=== PATIENT | female | born 1970 | race Caucasian/White ===

== ENCOUNTER → 2019-11-30 12:32 | Outpatient (BNVA) | payer SELFPAY | PROVIDERS: PCP Family Medicine; Visit Provider Family Medicine | DX: I10 Essential (primary) hypertension (principal); R74.8 Abnormal levels of other serum enzymes; F31.32 Bipolar disorder, current episode depressed, moderate; E03.9 Hypothyroidism, unspecified; M79.7 Fibromyalgia; F31.30 Bipolar disorder, current episode depressed, mild or moderate severity, unspecified; M79.89 Other specified soft tissue disorders; K21.9 Gastro-esophageal reflux disease without esophagitis; N32.89 Other specified disorders of bladder | CPT/HCPCS: 80048; 80178; 84443 ==

== ENCOUNTER → 2020-02-08 17:58 | Outpatient (BNVA) | payer SELFPAY | PROVIDERS: PCP Family Medicine; Visit Provider Family Medicine | DX: N18.3 Chronic kidney disease, stage 3 (moderate) (principal); E03.9 Hypothyroidism, unspecified; F31.32 Bipolar disorder, current episode depressed, moderate; I10 Essential (primary) hypertension; M79.7 Fibromyalgia; M79.89 Other specified soft tissue disorders; K21.9 Gastro-esophageal reflux disease without esophagitis; N32.89 Other specified disorders of bladder | CPT/HCPCS: 80053; 80061; 80178; 84439; 84443; 84481; 85025 ==

== ENCOUNTER → 2020-06-07 18:00 | Outpatient (BNVA) | payer SELFPAY | PROVIDERS: PCP Family Medicine; Referring Provider Family Medicine; Visit Provider Family Medicine | DX: I10 Essential (primary) hypertension (principal); E03.9 Hypothyroidism, unspecified; F31.32 Bipolar disorder, current episode depressed, moderate; Z79.899 Other long term (current) drug therapy | CPT/HCPCS: 80048; 80178; 84439; 84443; 84481 ==

== ENCOUNTER → 2020-06-16 16:49 | Outpatient (BNVA) | payer SELFPAY | PROVIDERS: PCP Family Medicine; Visit Provider Nurse Practitioner Family | DX: N18.30 Chronic kidney disease, stage 3 unspecified (principal) | CPT/HCPCS: 80069; 81003; 82570; 84156 ==

== ENCOUNTER → 2020-09-14 14:39 | Outpatient (BNVA) | payer SELFPAY | PROVIDERS: PCP Family Medicine; Visit Provider Family Medicine | DX: N18.30 Chronic kidney disease, stage 3 unspecified (principal); E03.9 Hypothyroidism, unspecified; M79.89 Other specified soft tissue disorders; M79.7 Fibromyalgia; K21.9 Gastro-esophageal reflux disease without esophagitis; I83.90 Asymptomatic varicose veins of unspecified lower extremity; I12.9 Hypertensive chronic kidney disease with stage 1 through stage 4 chronic kidney disease, or unspecified chronic kidney disease | CPT/HCPCS: 80048; 84443 ==

== ENCOUNTER → 2020-10-31 17:20 | Outpatient (BNVA) | payer OTHER, SELFPAY | PROVIDERS: PCP Family Medicine; Visit Provider Nurse Practitioner Family | DX: Z20.822 Contact with and (suspected) exposure to COVID-19 (principal) | CPT/HCPCS: 87635 ==

== ENCOUNTER → 2020-11-14 15:48 | Outpatient (BNVA) | payer SELFPAY | PROVIDERS: PCP Family Medicine; Visit Provider Family Medicine | DX: J41.0 Simple chronic bronchitis (principal); M79.7 Fibromyalgia; B37.0 Candidal stomatitis; M79.89 Other specified soft tissue disorders; I10 Essential (primary) hypertension; K21.9 Gastro-esophageal reflux disease without esophagitis; E03.9 Hypothyroidism, unspecified; F17.200 Nicotine dependence, unspecified, uncomplicated; F31.76 Bipolar disorder, in full remission, most recent episode depressed; N18.30 Chronic kidney disease, stage 3 unspecified | CPT/HCPCS: 84443 ==

== ENCOUNTER → 2021-02-27 11:00 | Outpatient (BNVA) | payer SELFPAY | PROVIDERS: PCP Family Medicine; Visit Provider Family Medicine | DX: J41.0 Simple chronic bronchitis (principal); M79.89 Other specified soft tissue disorders; M79.7 Fibromyalgia; E03.9 Hypothyroidism, unspecified; K21.9 Gastro-esophageal reflux disease without esophagitis; N18.30 Chronic kidney disease, stage 3 unspecified; I12.9 Hypertensive chronic kidney disease with stage 1 through stage 4 chronic kidney disease, or unspecified chronic kidney disease | CPT/HCPCS: 80048; 84439; 84443; 84481 ==

== ENCOUNTER → 2021-05-11 09:31 | Outpatient (BNVA) | payer SELFPAY | PROVIDERS: PCP Family Medicine; Referring Provider Nurse Practitioner Psychiatric/Mental Health; Visit Provider Nurse Practitioner Psychiatric/Mental Health | DX: Z79.899 Other long term (current) drug therapy (principal) | CPT/HCPCS: 36415; 80061; 80178; 83036 ==

== ENCOUNTER → 2021-07-27 07:35 | Outpatient (BNVA) | payer MEDICAID, SELFPAY | PROVIDERS: PCP Family Medicine; Visit Provider Nurse Practitioner Psychiatric/Mental Health | DX: F31.76 Bipolar disorder, in full remission, most recent episode depressed (principal); Z79.899 Other long term (current) drug therapy; Z51.81 Encounter for therapeutic drug level monitoring; G89.29 Other chronic pain; M79.7 Fibromyalgia | CPT/HCPCS: 99214 ==

== ENCOUNTER → 2021-08-30 17:15 | Outpatient (BNVA) | payer MEDICAID, SELFPAY | PROVIDERS: PCP Family Medicine; Visit Provider Psychiatry & Neurology Neurology | DX: J41.0 Simple chronic bronchitis (principal) | CPT/HCPCS: 87635 ==

== ENCOUNTER 2021-09-05 12:59 | Outpatient (CLI) | payer MEDICAID, SELFPAY ==
--- NOTE | 2021-09-05 13:39 | PFTS_ITS ---
Date of Study:09/05/21 Date of Dictation: MECHANICS: Forced vital capacity (FVC) is reduced. Forced expiratory volume in one second (FEV1) is reduced. FEV1/FVC is normal. FLOW VOLUME LOOP: Reduced flow at all lung volumes with scooping. LUNG VOLUMES: Total lung capacity (TLC) is normal. Residual volume (RV) is increased. DIFFUSING CAPACITY FOR CARBON MONOXIDE: Moderately reduced. INTERPRETATION: The postbronchodilator spirometry is consistent with moderate restriction. There is a significant postbronchodilator response. Lung volumes are suggestive of air trapping. Gas exchange (DLCO) is moderately reduced. MTDD
== END 2021-09-05 13:00 | disposition home or self-care (01) ==
LOC: RT 13:00
PROVIDERS: PCP Family Medicine; Visit Provider Family Medicine
DX: J41.0 Simple chronic bronchitis (principal)
CPT/HCPCS: 94060; 94726; 94729

== ENCOUNTER 2021-09-19 12:00 | Outpatient (CLI) | payer MEDICAID, SELFPAY | END 2021-09-19 12:01 | disposition home or self-care (01) | LOC: SLEEP 09-20 09:43 | PROVIDERS: PCP Family Medicine; Visit Provider Internal Medicine Critical Care Medicine | DX: G47.10 Hypersomnia, unspecified (principal) | CPT/HCPCS: G0399 ==

== ENCOUNTER → 2021-09-22 10:43 | Outpatient (BNVA) | payer MEDICAID, SELFPAY | PROVIDERS: PCP Family Medicine; Visit Provider Emergency Medicine | DX: S39.012A Strain of muscle, fascia and tendon of lower back, initial encounter (principal); X50.3XXA Overexertion from repetitive movements, initial encounter; M54.9 Dorsalgia, unspecified | CPT/HCPCS: 72114 ==

== ENCOUNTER → 2021-09-27 10:38 | Outpatient (BNVA) | payer MEDICAID, SELFPAY | PROVIDERS: PCP Family Medicine; Visit Provider Family Medicine | DX: R82.90 Unspecified abnormal findings in urine (principal); E03.9 Hypothyroidism, unspecified; I10 Essential (primary) hypertension; R06.02 Shortness of breath | CPT/HCPCS: 80048; 81000; 82785; 84443; 86003 ==

== ENCOUNTER → 2021-10-02 14:08 | Outpatient (BNVA) | payer MEDICAID, SELFPAY | PROVIDERS: PCP Family Medicine; Visit Provider Nurse Practitioner Family | DX: Z20.822 Contact with and (suspected) exposure to COVID-19 (principal) | CPT/HCPCS: 87635 ==

== ENCOUNTER → 2021-10-24 11:13 | Outpatient (BNVA) | payer MEDICAID, SELFPAY | PROVIDERS: PCP Family Medicine; Visit Provider Nurse Practitioner Psychiatric/Mental Health | DX: F31.70 Bipolar disorder, currently in remission, most recent episode unspecified (principal); G89.4 Chronic pain syndrome; N18.9 Chronic kidney disease, unspecified; M79.7 Fibromyalgia | CPT/HCPCS: 99213 ==

== ENCOUNTER 2021-10-27 08:39 | Outpatient (CLI) | payer MEDICAID, SELFPAY ==
--- NOTE | 2021-10-27 08:15 | XR_ITS ---
WS: [id number] Chest 2 views, 10/27/2021 Clinical Data: Shortness of breath Comparison: Portable chest, 01/10/2019. Findings: No nodules, masses or effusions are seen. The heart is normal. The pulmonary vascularity is not increased. No pneumonia or pneumothorax is seen. XR/XR chest 2V* [id number] Impression: Negative chest.
--- NOTE | 2021-10-27 08:49 | USCV_ITS ---
Lima Roblero Age: 51 Gender: F : 1970 Exam Date: 10/27/2021 09:05 Ordering Phys: Valeria Serrano MD ([email or web address]) Technologist: Surekha Lacy Exam Location: [facility] [place] Indication: Mitral valve Prolapse BP: 150 / 104 HR: 63 Rhythm: Sinus Technical Quality: Adequate MEASUREMENTS (Male / Female) Normal Values 2D ECHO LV Diastolic Diameter PLAX 4.8 cm 4.2 - 5.9 / 3.9 - 5.3 cm LV Systolic Diameter PLAX 3.1 cm LV Chamber Size 3.8 cm IVS Diastolic Thickness 0.9 cm 0.6 - 1.0 / 0.6 - 0.9 cm IVS Systolic Thickness 1.3 cm LVPW Diastolic Thickness 1.2 cm 0.6 - 1.0 / 0.6 - 0.9 cm LVPW Systolic Thickness 1.3 cm RV Chamber Size 3.0 cm LVOT Diameter 2.0 cm LV Ejection Fraction 2D Teich 63.3 % LV Ejection Fraction MOD 2C 47.8 % LV Ejection Fraction 2C AL 49.1 % LA Diameter 3.1 cm LA Width 2.6 cm LA Height 3.7 cm RA Width 3.5 cm RA Height 4.4 cm Aorta at Sinotubular Diameter 2.9 cm M-MODE Aortic Annulus Diameter 3.1 cm LA Ao Ratio MM 1.0 MV E Point Septal Separation 0.7 cm DOPPLER MV Peak Velocity 94.0 cm/s MV Area PHT 3.5 cm squared Mitral E to A Ratio 0.9 MV E' Velocity 87.0 cm/s TR Peak Velocity 202.3 cm/s TR Peak Gradient 16.4 mmHg TR Mean Velocity 158.9 cm/s TR Mean Gradient 11.0 mmHg TR Velocity Time Integral 55.0 cm TV Peak E Velocity 68.0 cm/s Right Atrial Pressure 3.0 mmHg Pulmonary Artery Systolic Pressu 19.4 mmHg PV Peak Velocity 85.0 cm/s RV Acceleration Time 0.1 s RV Ejection Time 0.4 s RV AcT/ET 0.4 FINDINGS Left Ventricle Normal left ventricular size, systolic function and wall thickness, with no regional wall motion abnormalities. Left ventricular ejection fraction is estimated at 70 %. Normal diastolic function. Right Ventricle Normal right ventricular size and systolic function. Right ventricular systolic pressure 19.4 mmHg. Right Atrium Normal right atrial size. Left Atrium Normal left atrial size. Mitral Valve Mildly thickened mitral valve. No mitral valve stenosis. Mild mitral valve regurgitation. Aortic Valve Structurally normal trileaflet aortic valve. No aortic valve stenosis. No aortic valve regurgitation. Tricuspid Valve Structurally normal tricuspid valve. No tricuspid valve stenosis. Trace to mild tricuspid valve regurgitation. Pulmonic Valve Structurally normal pulmonic valve. No pulmonary valve stenosis. Trace pulmonary valve regurgitation. Pericardium No pericardial effusion. Aorta Normal size aortic root and proximal ascending aorta. CONCLUSIONS 1. Normal left ventricular size, systolic function and wall thickness, with no regional wall motion abnormalities. Left ventricular ejection fraction is estimated at 70 %. Normal diastolic function. 2. Mild mitral valve regurgitation. 3. Normal pulmonary artery pressure. 4. No prior similar studies to compare. Valeria Serrano MD (Electronically Signed) Final Date: 01 November 2021 07:48 S
[2021-10-27] MEDS: perflutren protein-a microsphr 0.22 mg/mL SDV 3 mL IV (15:21)
== END 2021-10-27 08:40 | disposition home or self-care (01) ==
LOC: RAD 08:40
PROVIDERS: PCP Family Medicine; Visit Provider Internal Medicine Critical Care Medicine
DX: I34.1 Nonrheumatic mitral (valve) prolapse (principal); R06.02 Shortness of breath; I34.0 Nonrheumatic mitral (valve) insufficiency
CPT/HCPCS: 71046; C8929

== ENCOUNTER 2021-11-06 08:04 | Outpatient (CLI) | payer MEDICAID, SELFPAY ==
--- NOTE | 2021-11-06 08:00 | MR_ITS ---
WS: [id number] MRI LUMBAR SPINE NONCONTRAST HISTORY: M54.50 - Low back pain, unspecified COMPARISON: None available. TECHNIQUE: Sagittal and axial multisequence imaging is submitted. Mild straightening and LEFT rotoscoliosis of the lumbar spine. Very slight retrolisthesis of L3. Mild disc desiccation throughout without significant loss of height. No fracture. Conus terminates normally at L1. L1-L2: Mild facet and ligamentum flavum hypertrophy. No stenosis. L2-L3: Shallow central disc protrusion with annular fissure. Slight ligamentum flavum hypertrophy and facet arthritis. No significant stenosis. L3-L4: Mild annular disc bulging with a small RIGHT foraminal disc protrusion. Mild osteophytic ridgi ng. Moderate ligamentum flavum hypertrophy and facet arthritis. Moderate central stenosis due to comb ination of factors. There is mild disc encroachment into the subarticular recesses and central canal. L4-L5: Mild annular disc bulging. Mild ligamentum flavum hypertrophy and facet arthritis, greatest on the LEFT. Disc is asymmetric into the LEFT foramen with mild subarticular recess stenosis and proxim al foraminal stenosis. Mild central stenosis and narrowing of the subarticular recesses. L5-S1: Mild annular disc bulging and osteophytic ridging. Shallow central disc protrusion. Small disc osteophytes extends into the foramina bilaterally with mild foraminal narrowing, LEFT greater than R IGHT. Mild LEFT subarticular recess stenosis due to disc and osteophyte disease. RIGHT foraminal disc protrusion with mild contact on the L5 nerve root. Visualized retroperitoneum is negative. MR/MR lumbar spine wo con* [id number] IMPRESSION: 1. Moderate central stenosis at L3-4 due to combination of factors as above wi th mild disc encroachment into the subarticular recesses. There is an additiona l small RIGHT foraminal disc protrusion at L3-4. Mild disc and osteophyte encro achment upon the traversing L4 nerve roots in the subarticular recesses. 2. Mild central and bilateral subarticular recess stenosis at L4-5. Mild steno sis LEFT proximal foramen and subarticular recess. 3. Mild LEFT subarticular recess stenosis due to disc and osteophyte disease a t L5-S1. Additional RIGHT foraminal disc protrusion at L5-S1 with mild contact on the exiting L5 nerve root.
== END 2021-11-06 08:05 | disposition home or self-care (01) ==
LOC: RAD 08:06
PROVIDERS: PCP Family Medicine; Visit Provider Orthopaedic Surgery
DX: M48.061 Spinal stenosis, lumbar region without neurogenic claudication (principal); M51.26 Other intervertebral disc displacement, lumbar region; M25.78 Osteophyte, vertebrae; M51.27 Other intervertebral disc displacement, lumbosacral region
CPT/HCPCS: 72148

== ENCOUNTER 2021-11-07 06:00 | Outpatient (RCR) | payer MEDICAID, SELFPAY | END 2021-12-07 23:59 | disposition home or self-care (01) | LOC: MPT 06:00 | PROVIDERS: PCP Family Medicine; Referring Provider Orthopaedic Surgery; Visit Provider Orthopaedic Surgery | DX: M54.50 Low back pain, unspecified (principal); G89.29 Other chronic pain | CPT/HCPCS: 97032; 97110; 97140; 97161; 97530 ==

== ENCOUNTER → 2021-12-04 09:25 | Outpatient (BNVA) | payer MEDICAID, SELFPAY | PROVIDERS: PCP Family Medicine; Referring Provider Orthopaedic Surgery; Visit Provider Anesthesiology Pain Medicine | DX: M48.062 Spinal stenosis, lumbar region with neurogenic claudication (principal); M79.604 Pain in right leg; M79.605 Pain in left leg; F17.210 Nicotine dependence, cigarettes, uncomplicated | CPT/HCPCS: 99204 ==

== ENCOUNTER 2021-12-08 06:00 | Outpatient (RCR) | payer MEDICAID, SELFPAY | END 2022-01-06 23:59 | disposition home or self-care (01) | LOC: MPT 06:00 | PROVIDERS: PCP Family Medicine; Referring Provider Orthopaedic Surgery; Visit Provider Orthopaedic Surgery | DX: M54.50 Low back pain, unspecified (principal); G89.29 Other chronic pain | CPT/HCPCS: 81000; 97032; 97110 ==

== ENCOUNTER → 2021-12-08 12:16 | Outpatient (BNVA) | payer MEDICAID, SELFPAY | PROVIDERS: PCP Family Medicine; Visit Provider Emergency Medicine | DX: R82.90 Unspecified abnormal findings in urine (principal) | CPT/HCPCS: 81000 ==

== ENCOUNTER → 2021-12-12 13:59 | Outpatient (BNVA) | payer MEDICAID, SELFPAY | PROVIDERS: PCP Family Medicine; Visit Provider Anesthesiology Pain Medicine | DX: M54.16 Radiculopathy, lumbar region (principal); M48.062 Spinal stenosis, lumbar region with neurogenic claudication; F17.210 Nicotine dependence, cigarettes, uncomplicated | CPT/HCPCS: 64483; 64484; J1100; J3490 ==

== ENCOUNTER → 2021-12-26 10:20 | Outpatient (BNVA) | payer MEDICAID, SELFPAY | PROVIDERS: PCP Family Medicine; Visit Provider Anesthesiology Pain Medicine | DX: M48.062 Spinal stenosis, lumbar region with neurogenic claudication (principal); M79.604 Pain in right leg; M79.605 Pain in left leg; F17.210 Nicotine dependence, cigarettes, uncomplicated | CPT/HCPCS: 99214 ==

== ENCOUNTER → 2021-12-27 10:50 | Outpatient (BNVA) | payer MEDICAID, SELFPAY | PROVIDERS: PCP Family Medicine; Visit Provider Family Medicine | DX: E03.9 Hypothyroidism, unspecified (principal); F39 Unspecified mood [affective] disorder; N18.30 Chronic kidney disease, stage 3 unspecified | CPT/HCPCS: 80048; 80178; 84439; 84443; 84481 ==

== ENCOUNTER → 2022-01-02 12:53 | Outpatient (BNVA) | payer MEDICAID, SELFPAY | PROVIDERS: PCP Family Medicine; Visit Provider Anesthesiology Pain Medicine | DX: F17.210 Nicotine dependence, cigarettes, uncomplicated (principal); M54.16 Radiculopathy, lumbar region | CPT/HCPCS: 62323; J1040; J3490 ==

== ENCOUNTER 2022-01-07 | Outpatient (RCR) | payer MEDICAID, SELFPAY | END 2022-01-11 23:59 | disposition home or self-care (01) | LOC: MPT | PROVIDERS: PCP Family Medicine; Referring Provider Orthopaedic Surgery; Visit Provider Orthopaedic Surgery | DX: M54.50 Low back pain, unspecified (principal) | CPT/HCPCS: 97110 ==

== ENCOUNTER → 2022-01-16 10:02 | Outpatient (BNVA) | payer MEDICAID, SELFPAY | PROVIDERS: PCP Family Medicine; Visit Provider Anesthesiology Pain Medicine | DX: M48.062 Spinal stenosis, lumbar region with neurogenic claudication (principal); M79.604 Pain in right leg; M79.605 Pain in left leg; F17.210 Nicotine dependence, cigarettes, uncomplicated | CPT/HCPCS: 99214 ==

== ENCOUNTER → 2022-02-27 07:34 | Outpatient (BNVA) | payer MEDICAID, SELFPAY | PROVIDERS: PCP Family Medicine; Visit Provider Nurse Practitioner Psychiatric/Mental Health | DX: F31.76 Bipolar disorder, in full remission, most recent episode depressed (principal); G89.29 Other chronic pain; M79.7 Fibromyalgia | CPT/HCPCS: 99213 ==

== ENCOUNTER → 2022-03-01 10:24 | Outpatient (BNVA) | payer MEDICAID, SELFPAY | PROVIDERS: PCP Family Medicine; Visit Provider Orthopaedic Surgery | DX: M48.062 Spinal stenosis, lumbar region with neurogenic claudication (principal); M24.852 Other specific joint derangements of left hip, not elsewhere classified | CPT/HCPCS: 73502; 99214 ==

== ENCOUNTER 2022-03-30 05:41 | Day surgery (SDC) | payer MEDICAID, SELFPAY ==
[2022-03-28 08:32] VITALS: BMI 29.7
--- NOTE | 2022-03-28 08:56 | P.ANESASSM_ITS ---
Pre-Anesthetic Assessment Height/Weight: Height 1.8 m Weight 96.615 kg Operation Date: 03/30/22 07:00 Proposed Procedures p Lumbar Spine Decompression L3/4 02923/M48.062(Left) - Chance Nava DO Familial anesthetic complications: NOne Social Tobacco and No alcohol Exam alert, oriented x 3, clear to auscultation bilaterally and regular rate & rhythm Airway Mallampati: Class II Dentition: other (no teeth) Pulmonary Asthma, Chronic Obstructive Pulmonary Disease and Sleep Apnea CV/HEM Hypertension mild MVP Chronic Renal Insufficiency Hepatic None reported GI Gastroesophageal Reflux Disease Metabolic Thyroid Disease [facility] [place] Fibromyalgia Neuropsych Bipolar Anesthetic Plan ASA status: 3 Anesthesia: General Risk of > 500 ml blood loss (7ml/kg in children): No Medications/Allergies Home Medications Medication Instructions Recorded Confirmed Last Taken Type magnesium oxide 500 mg capsule 400 mg PO DAILY cap 03/18/20 03/28/22 Unknown History vitamin B complex (B 1 tab PO DAILY #30 tab 03/21/20 03/28/22 Unknown Rx Complex-Vitamin B12) zinc 50 mg tablet 25 mg PO DAILY #30 tab 03/21/20 03/28/22 Unknown Rx omega-3 fatty acids 1,000 mg 1,000 mg PO BID 06/15/21 03/28/22 Unknown History capsule (Fish Oil Concentrate) metoprolol succinate 50 mg 75 mg PO DAILY #135 tab 08/07/21 03/28/22 Unknown Rx tablet,extended release 24 hr ascorbic acid (vitamin C) 500 mg 500 mg PO DAILY 10/24/21 03/28/22 Unknown History chewable tablet acetaminophen 500 mg tablet 500 mg PO Q6H PRN 12/04/21 03/28/22 Unknown History (Tylenol Extra Strength) tizanidine 4 mg tablet 4 mg PO BID PRN #60 tab 12/04/21 03/28/22 Unknown Rx albuterol sulfate 90 mcg/actuation 2 puff INHALATION Q6H PRN #8.5 g 12/27/21 03/28/22 Unknown Rx aerosol inhaler (ProAir HFA) omeprazole magnesium 20 mg 20 mg PO DAILY 90 Days #90 tab 12/27/21 03/28/22 Unknown Rx tablet,delayed release furosemide 20 mg tablet 20 mg PO QAM 90 Days #90 tab 12/31/21 03/28/22 Unknown Rx levothyroxine 112 mcg tablet 112 mcg PO DAILY 90 Days #90 tab 12/31/21 03/28/22 Unknown Rx [place] lumbar Brace #1 ea 02/07/22 03/01/22 Unknown Rx lithium carbonate 300 mg capsule 300 mg PO BID #60 cap 02/27/22 03/28/22 Unknown Rx quetiapine 300 mg tablet (Seroquel) 300 mg PO DAILY 30 Days #30 tab 02/27/22 03/28/22 Unknown Rx fluticasone 250 mcg-salmeterol 50 1 inh INHALATION BID 03/28/22 03/28/22 Unknown History mcg/dose blistr powdr for inhalation (Advair Diskus) gabapentin 300 mg capsule 300 mg PO TID 03/28/22 03/28/22 Unknown History Allergies Allergy/AdvReac Type Severity Reaction Status Date / Time Penicillins Allergy Severe Hives, Verified 03/28/22 08:26 Rash, Fever PFSH Anesthesia Medical History Bipolar 1 disorder, depressed, full remission Bipolar 1 disorder, depressed, partial remission Bipolar disorder current episode depressed Bladder spasm Chronic bronchitis with acute exacerbation Chronic pain CKD (chronic kidney disease) Elevated creatine kinase level Fibromyalgia Cannot tolerate NSAIDs due to them causing SYMONE. GERD (gastroesophageal reflux disease) GERD without esophagitis Hyperkalemia Hypertension, benign No spironolactone due to high K No HCTZ, made leg swelling worse per pt Hypothyroid Leg swelling MVP (mitral valve prolapse) Peripheral edema Psychiatric care Radiculopathy due to disorder of intervertebral disc Repetitive strain injury of lower back Right bundle branch block Surgical History H/O dilation and curettage H/O tubal ligation H/O tympanostomy H/O: hysterectomy History of bladder surgery Hx of cholecystectomy Family History Mother Cancer breast cancer Father Heart disease Other Diabetes Social History Smoking and tobacco status: current every day smoker cigarettes Packs smoked per day: 1.5 Years cigarettes smoked: 28 Quit status (tobacco): has tried quititng Number of times tried to quit tobacco: 15 Smoking risk assessment/counseling performed?: No Alcohol intake: never History of recent travel: No Current gender identity: Female Female Reproductive History Spontaneous abortions: No Data Anesthesia : 03/28/22 08:48 03/28/22 08:48 Cardiac Studies: Echocardiogram 10/27/21
[2022-03-28 09:02] LABS: Basophils % 0.5 %; Eosinophils # 0.3 10^3/uL (0.0-0.8); Eosinophils % 3.8 %; Hematocrit 39.5 % (37.0-47.0); Hemoglobin 12.5 g/dL (11.5-15.3); Lymphocytes % 25.6 %; Mean Corpuscular HGB Conc 31.6 g/dL (30.0-36.0); Mean Corpuscular Hemoglobin 31.4 pg (28.0-34.0); Mean Corpuscular Volume 99.2 fl (81-99); Mean Platelet Volume 8.9 fL (7.4-10.4); Monocytes # 0.5 10^3/uL (0.2-0.9); Monocytes % 6.4 %; Neutrophils # 4.95 10^3/uL (1.8-7.7); Neutrophils % 63.6 %; Nucleated Red Blood Cells % 0 %; Platelet Count 278 10^3/cmm (130-400); Red Blood Count 3.98 10^6/uL (4.1-5.3); Red Cell Distribution Width 13.2 % (12.1-15.1); White Blood Count 7.8 10^3/uL (4.0-10.0)
[2022-03-28 09:52] LABS: Anion Gap 13.2 (5-19); Blood Urea Nitrogen 20 mg/dL (6-20); Calcium 9.7 mg/dL (8.5-10.5); Carbon Dioxide 27 mmol/L (22-29); Chloride 101 mmol/L (98-107); Glomerular Filtration Rate 47.4 mL/min (90-130); Glucose 93 mg/dL (65-115); Osmolality Calculated 286 mOsm/kg (285-295); Potassium 4.2 mmol/L (3.5-5.1); Sodium 137 mmol/L (136-145)
[2022-03-30] VITALS (9 sets, daily range): BP systolic 104–156; BP diastolic 69–98; PULSE 65–73; RESP 14–21; TEMP 36.1–36.4; O2SAT 93–100
--- NOTE | 2022-03-30 | SCC_ITS ---
Procedure: L3-4 laminectomy with partial facetectomy 16.3 seconds of fluoroscopic guidance, for a cumulative dose of 7.13 mGy, was provided to Dr. Nava by the radiology department. C-arm images of the lumbar spine were saved for the patient's permanent record. [facility]
--- NOTE | 2022-03-30 | XR_ITS ---
WS: [id number] XR lumbar spine 1V [id number] REASON FOR EXAM: l3/l4 decompression FINDINGS: Surgical probe from the left overlying the L3-L4 disc space. Surgical instrument overlying the L3-L4 disc space on the left. XR/XR lumbar spine 1V [id number] IMPRESSION: Intraoperative localization of the L3-L4 disc space on the left.
[2022-03-30] MEDS: sodium chloride 0.9% 1,000 ML 30 ML IV (06:13)
--- NOTE | 2022-03-30 06:42 | W.PM.OPSUD ---
Surgery/Procedure H&P Update DATE OF PROCEDURE: March 30, 2022 DATE H&P PERFORMED: 03/01/22 H&P UPDATE INFORMATION: I have reviewed H&P completed within last 30 days, I have examined patient prior to procedure and No changes to prior documentation PREOP DIAGNOSIS: Lumbar stenosis with neurogenic claudication PLANNED PROCEDURE: Operation Date: 03/30/22 07:00 Proposed Procedures p Lumbar Spine Decompression L3/4 06140/M48.062(Left) - Chance Nava DO
--- NOTE | 2022-03-30 06:58 | P.ANESUD_ITS ---
Pre-Anesthetic Update Pre-Anesthetic Assessment: Date of Surgery/Procedure: 03/30/22 Preop Dunia gnosis: Lumbar stenosis with neurogenic claudication Proposed Procedure: Operation Date: 03/30/22 07:00 Proposed Procedures p Lumbar Spine Decompression L3/4 83131/M48.062(Left) - Chance Nava DO Changes from Pre-Anesthetic Assessment: None Last Intake: Intake Last Liquid Date 03/29/22 Last Liquid Time 21:30 Last Solid Date 03/29/22 Last Solid Time 21:30 Labs Last 48hrs: Short CBC 03/28/22 Range/Units 08:48 WBC 7.8 (4.0-10.0) 10^3/ uL Hgb 12.5 (11.5-15.3) g/dL Hct 39.5 (37.0-47.0) % MCV 99.2 H (81-99) fl Plt Count 278 (130-400) 10^3/c mm Neut % (Auto) 63.6 % Neut # (Auto) 4.95 (1.8-7.7) 10^3/u L BMP 03/28/22 08:48 Sodium 137 Potassium 4.2 Chloride 101 Carbon Dioxide 27 BUN 20 Creatinine 1.2 H Glucose 93 Calcium 9.7 Vitals: Temperature 97.1 F L 03/30/22 06:01 Temperature Source Temporal Artery S can 03/30/22 06:01 Pulse Rate 67 03/30/22 06:01 Respiratory Rate 17 03/30/22 06:01 Blood Pressure 149/95 03/30/22 06:01 Blood Pressure Masha n 113 03/30/22 06:01 Pulse Oximetry 97 03/30/22 06:01 Oxygen Delivery Me thod 03/30/22 06:01 Exam: Pre-Anes Outpt Exam: alert, oriented x 3, clear to auscultation bilaterally and regular rate & rhythm Cardiac Studies: Echocardiogram 10/27/21
[2022-03-30] MEDS: clindamycin 900 MG/50 ML PREMIX 100 MG IV (06:59)
--- NOTE | 2022-03-30 08:16 | PM.OP ---
Operative Report Date of procedure: March 30, 2022 Pre-op diagnosis: Preop Diagnosis Lumbar stenosis with neurogenic claudication Post-op diagnosis: same Procedure done: L3-4 laminectomy with partial facetectomy Surgeon: Chance Nava Estimated blood loss (mL): 5 Procedure: L3-4 laminectomy with partial facetectomy Patient is brought to the operative suite. After undergoing anesthesia they are placed in the prone position. All areas of impingement are well padded. Patient is then prepped and draped in the normal sterile fashion. A skin incision is made over the L3-4 level. This is confirmed under c-arm guidance. A series of dilators are passed and the tubular retractor is docked on the L 3 lamina. A bovie is used to clear the soft tissue off the lamina and the L 3/4 facet joint. A high speed nory is then used to perform the laminectomy and take down the medial aspect of the L 3/4 facet joint. A kerrison rongeure was then used to take down the remaining lamina and smooth the edge of the laminectomy up to the point where the ligamentum flavum attaches. Attention was then brought to the medial aspect of the facet joint. The remaining medial aspect of the superior and inferior aspect of the facet joint were taken down with the kerrison from the pedicle of L 3 to L 4. The facet joint had significant hypertrophy. Attention was then brought to the Ligamentum Flavum. The ligament was taken down from the lamina of L 3 to L 4 and out medially to the remaining facet joint. The ligament was thick. The dura was then exposed. The dura was in good repair. The L 3 nerve was then traced with a curette out the L 3/4 foramen and found to be adequately decompressed. The L 4 nerve was traced with a curette around the L 4 pedicle. The lateral recess was opened with a kerrison helping to further decompress the L 4 nerve. Wound is then irrigated copiously with saline and surgiflo is used to stop any bleeding. The tubular retractor is removed and the wound is closed with vicryl and monocryl suture. Glue is then used to protect the wound. A sterile dressing is then placed. Patient was then placed in the supine position and transferred to the PACU in stable condition.
[2022-03-30] MEDS: HYDROcodone-acetaminophen 5-325 mg Tablet 1 TAB PO (08:52)
--- NOTE | 2022-03-30 12:20 | ANE.PACU2 ---
Inpatient post-anesthesia follow up: Airway intact: Yes Vital signs: Temperature 97.6 F Pulse Rate 68 Respiratory Rate 18 Blood Pressure 156/98 Pulse Oximetry 98 Oxygen Delivery Me thod Room Air Oxygen Flow Rate 10 Fraction of Inspir ed Oxygen Hydration adequate: Yes Nausea and vomiting: No Pain level: 1 Mental status: Baseline
== END 2022-03-30 09:21 | disposition home or self-care (01) ==
PROVIDERS: Anesthesiology; PCP Family Medicine; Visit Provider Orthopaedic Surgery
PROC: (CPT 63005; principal; 2022-03-30 07:00)
DX: M48.062 Spinal stenosis, lumbar region with neurogenic claudication (principal); J44.9 Chronic obstructive pulmonary disease, unspecified; G47.30 Sleep apnea, unspecified; K21.9 Gastro-esophageal reflux disease without esophagitis; M79.7 Fibromyalgia; I12.9 Hypertensive chronic kidney disease with stage 1 through stage 4 chronic kidney disease, or unspecified chronic kidney disease; N18.9 Chronic kidney disease, unspecified; F17.210 Nicotine dependence, cigarettes, uncomplicated
CPT/HCPCS: 63047; 36415; 72020; 76000; 80048; 85025; A7015; J1100; J1200; J2250; J2370; J2405; J3010; J3490; J7030

== ENCOUNTER → 2022-04-12 09:08 | Outpatient (BNVA) | payer MEDICAID, SELFPAY | PROVIDERS: PCP Family Medicine; Visit Provider Orthopaedic Surgery | DX: Z47.89 Encounter for other orthopedic aftercare (principal); Z98.890 Other specified postprocedural states | CPT/HCPCS: 99024 ==

== ENCOUNTER → 2022-06-19 09:45 | Outpatient (BNVA) | payer MEDICAID, SELFPAY | PROVIDERS: PCP Family Medicine; Visit Provider Physician Assistant | DX: M47.12 Other spondylosis with myelopathy, cervical region (principal) | CPT/HCPCS: 72050 ==

== ENCOUNTER 2022-07-12 12:46 | Outpatient (CLI) | payer MEDICAID, SELFPAY ==
--- NOTE | 2022-07-12 12:56 | CT_ITS ---
WS: [id number] LDCT LUNG CANCER SCREENING TECHNIQUE: Noncontrast CT of the chest with coronal and sagittal reformatted images. CLINICAL INFORMATION: Lung cancer screenin COMPARISON: None. DLP: 77.90 mGy.cm DIvol: Mean CTDIvol: 1.60 (mGy) All CT scans at [facility] use at least one of these dose optimization techniques: automat ed exposure control; mA and/or kV adjustment per patient size (includes targeted exams where dose is matched to clinical indication); or iterative reconstruction. FINDINGS:5 mm noncalcified nodule RIGHT upper lobe. Subsegmental atelectasis in the lingula. Tiny sub pleural nodule LEFT lower lobe measuring 2 mm. Both lungs are well aerated. No acute pulmonary infiltrates. No focal pneumonia or pleural fluid. No mediastinal or hilar lymphadenopathy. No axillary lymphadenopathy. Cholecystectomy clips. Adrenal glands are normal. Normal GE junction. CT/CT lung screening [id number] IMPRESSION: LUNG-RADS: 3-Probably Benign FOLLOW UP: 6 Month LDCT
== END 2022-07-12 12:47 | disposition home or self-care (01) ==
LOC: RAD 12:47
PROVIDERS: PCP Family Medicine; Visit Provider Internal Medicine Critical Care Medicine
DX: F17.210 Nicotine dependence, cigarettes, uncomplicated (principal); Z12.2 Encounter for screening for malignant neoplasm of respiratory organs
CPT/HCPCS: 71271

== ENCOUNTER → 2022-07-16 08:35 | Outpatient (BNVA) | payer MEDICAID, SELFPAY | PROVIDERS: PCP Family Medicine; Visit Provider Family Medicine | DX: E03.9 Hypothyroidism, unspecified (principal); Z79.899 Other long term (current) drug therapy; M79.89 Other specified soft tissue disorders; I10 Essential (primary) hypertension; M79.7 Fibromyalgia; F17.210 Nicotine dependence, cigarettes, uncomplicated; R91.1 Solitary pulmonary nodule | CPT/HCPCS: 80053; 80061; 80178; 83036; 84443 ==

== ENCOUNTER 2022-08-01 07:50 | Outpatient (CLI) | payer MEDICAID, SELFPAY ==
--- NOTE | 2022-08-01 07:15 | MR_ITS ---
WS: [id number] MRI CERVICAL SPINE NONCONTRAST TECHNIQUE: Sagittal T1, T2 and STIR imaging. Axial T2, gradient, and fiesta imaging. CLINICAL INFORMATION: neck pain COMPARISON: None. FINDINGS: Straightening of the normal cervical lordosis. Cord signal is normal. Mild disc bulging worse at C5-C 6. C2-C3: Mild facet arthropathy. Spinal canal and foramen are patent. C3-C4: Mild disc osteophytic ridging. Mild facet arthropathy. Spinal canal is patent. Mild LEFT and n o significant RIGHT foraminal narrowing. C4-C5: Mild disc osteophyte complex with endplate ridging. Mild LEFT and no RIGHT foraminal narrowing . Mild facet arthropathy. Spinal canal is patent. C5-C6: Disc osteophyte complex with endplate ridging. Mild central canal stenosis and slight indentat ion on cervical cord. Severe LEFT bony foraminal narrowing. Mild RIGHT bony foraminal narrowing. Mild facet arthropathy. Mild central canal stenosis. C6-C7: Mild disc bulging with slight effacement of ventral thecal sac. Mild LEFT and no RIGHT foramin al narrowing. Spinal canal is patent. C7-T1: Normal. Visualized brain stem structures: Normal. Prevertebral soft tissues: Normal. MR/MR cervical spin wo con* [id number] IMPRESSION: 1. Mild disc bulging with osteophytic ridging at C5-C6. Shallow central protru bradley with indentation on cervical cord and mild central canal stenosis. Severe LEFT bony foraminal narrowing. 2. Mild facet arthropathy C4-C5 and C5-C6. 3. Mild disc bulging C4-C5 and C6-C7 without significant central canal stenosi s 4. Cord signal is normal.
== END 2022-08-01 07:51 | disposition home or self-care (01) ==
LOC: RAD 07:54
PROVIDERS: PCP Family Medicine; Visit Provider Physician Assistant
DX: M50.222 Other cervical disc displacement at C5-C6 level (principal); M50.221 Other cervical disc displacement at C4-C5 level; M50.223 Other cervical disc displacement at C6-C7 level
CPT/HCPCS: 72141

== ENCOUNTER 2022-08-07 12:12 | Outpatient (CLI) | payer MEDICAID, SELFPAY ==
--- NOTE | 2022-08-07 14:30 | MR_ITS ---
WS: [id number] MRI LUMBAR SPINE NONCONTRAST HISTORY: post op lumbar decompression COMPARISON: None available. TECHNIQUE: Sagittal and axial multisequence imaging is submitted. Same numbering pattern will be util ized on today's examination as 11/06/2021. Thoracolumbar scoliosis. RIGHT curvature thoracic spine. 2 mm retrolisthesis of L3. Otherwise normal alignment. There is a very small amount of marrow edema i n the posterior L3 vertebral body. Mild disc space narrowing and desiccation. Conus terminates normally at L1. L1-L2: Bilateral facet joint arthritis. No stenosis. L2-L3: Mild osteophytic ridging and mild ligamentum flavum hypertrophy. There is a small shallow cent ral disc protrusion similar to the prior study. No stenosis. L3-L4: Mild diffuse asymmetric annular disc bulging. Since the prior study LEFT laminectomy defect is now evident. Moderate facet joint arthritis and ligamentum flavum arthritis encroaching towards the thecal sac. Narrowing and encroachment upon the RIGHT subarticular recess. Thecal sac is being deform ed which is predominantly due to the scoliosis. Very similar to the prior study. Mild central stenosi s and RIGHT foraminal stenosis. L4-L5: Mild diffuse asymmetric disc bulging with ligamentum flavum and facet arthritis. More severe L EFT facet joint arthritis. Mild clumping of the nerve roots in the thecal sac is new. Mild central, L EFT subarticular recess and foraminal stenosis. Similar to the prior study. L5-S1: Mild diffuse asymmetric disc bulging. There is a very shallow central disc protrusion. Disc bu lging is contacting the L5 nerve roots bilaterally but greatest involving the LEFT foramen. Similar t o the prior study. Moderate LEFT and mild RIGHT foraminal stenosis. Minimal encroachment into the LEF T subarticular recess with disc contacting the LEFT S1 nerve root. MR/MR lumbar spine wo con* [id number] IMPRESSION: 1. Since the prior examination patient has undergone a LEFT L3-4 hemilaminecto my defect. Otherwise no significant progression of disc disease or stenoses. 2. Moderate facet joint arthritis and ligamentum flavum arthritis at L3-4. 3. Mild central, RIGHT subarticular recess and foraminal stenosis at L3-4 is u nchanged. 4. Severe LEFT facet joint arthritis at L4-5. 5. Mild central, LEFT subarticular recess and foraminal stenosis at L4-5. 6. Mild disc bulging contacting the L5 nerve roots at L5-S1. Similar to the pr ior study. 7. Moderate LEFT and mild RIGHT foraminal stenosis L5-S1. 8. Multiple encroachment upon the LEFT subarticular recess at L5-S1 with disc contacting the LEFT S1 nerve root.
== END 2022-08-07 12:13 | disposition home or self-care (01) ==
LOC: RAD 12:13
PROVIDERS: PCP Family Medicine; Visit Provider Orthopaedic Surgery
DX: M48.062 Spinal stenosis, lumbar region with neurogenic claudication (principal); M48.061 Spinal stenosis, lumbar region without neurogenic claudication; M48.07 Spinal stenosis, lumbosacral region
CPT/HCPCS: 72148

== ENCOUNTER 2022-09-14 05:52 | Day surgery (SDC) | payer MEDICAID, SELFPAY ==
[2022-09-07 07:56] VITALS: BMI 29.2
--- NOTE | 2022-09-07 08:35 | ANES.PREANE2 ---
Pre-Anesthetic Assessment Height/Weight: Height 1.8 m Weight 95.254 kg Preop Diagnosis: Lumbar stenosis with neurogenic claudication Operation Date: 09/14/22 14:35 Proposed Procedures p ACDF C5/6 [id number](Not Applicable) - Chance Nava DO Familial anesthetic complications: None Social Tobacco and No alcohol Exam alert, oriented x 3, clear to auscultation bilaterally and regular rate & rhythm Airway Mallampati: Class II Dentition: other (no teeth) Pulmonary Asthma, Chronic Obstructive Pulmonary Disease and Sleep Apnea CV/HEM Hypertension and Palpitations mild MVR Chronic Renal Insufficiency GI Gastroesophageal Reflux Disease Metabolic Hyperlipidemia and Thyroid Disease Musc/skel Fibromyalgia and Lower Back Pain Anesthetic Plan ASA status: 3 Anesthesia: General Risk of > 500 ml blood loss (7ml/kg in children): Yes, adequate IV access and fluids planned Medications/Allergies Home Medications Medication Instructions Recorded Confirmed Last Taken Type magnesium oxide 500 mg capsule 400 mg PO DAILY 03/18/20 09/07/22 09/06/22 History vitamin B complex (B 1 tab PO DAILY #30 tabs 03/21/20 09/07/22 03/29/22 Rx Complex-Vitamin B12 tablet) zinc 50 mg tablet 25 mg PO DAILY #30 tabs 03/21/20 09/07/22 03/29/22 Rx omega-3 fatty acids 1,000 mg 1,000 mg PO BID 06/15/21 09/07/22 03/29/22 History capsule (Fish Oil Concentrate) ascorbic acid (vitamin C) 500 mg 500 mg PO DAILY 10/24/21 09/07/22 09/05/22 History chewable tablet acetaminophen 500 mg tablet 500 mg PO Q6H PRN Pain 12/04/21 09/07/22 09/06/22 History (Tylenol Extra Strength) [place] lumbar Brace #1 ea 02/07/22 08/16/22 Unknown Rx ProAir HFA 90 mcg/actuation See Rx Instructions .Route 04/05/22 09/07/22 09/06/22 Rx aerosol inhaler (albuterol sulfate) .COMPLEX #9 grams furosemide 20 mg tablet 20 mg PO QAM 90 days #90 tabs 04/10/22 09/07/22 09/06/22 Rx gabapentin 300 mg capsule See Rx Instructions .Route 04/10/22 09/07/22 09/06/22 Rx .COMPLEX #90 caps omeprazole magnesium 20 mg 20 mg PO DAILY 90 days #90 tabs 04/10/22 09/07/22 09/05/22 Rx tablet,delayed release metoprolol succinate 50 mg 75 mg PO DAILY #135 tabs 05/17/22 09/07/22 09/06/22 Rx tablet,extended release 24 hr tiotropium bromide 18 mcg capsule 1 cap inhalation DAILY 30 days #60 05/17/22 09/07/22 09/06/22 Rx with inhalation device (Spiriva inhalations with HandiHaler) lithium carbonate 300 mg capsule 300 mg PO BID #60 caps 06/14/22 09/07/22 09/06/22 Rx quetiapine 300 mg tablet (Seroquel) 300 mg PO DAILY bipolar disorder 06/14/22 09/07/22 09/06/22 Rx 30 days #30 tabs hydrocodone 5 mg-acetaminophen 325 1 tab PO Q8H PRN pain 7 days #30 06/28/22 09/07/22 Unknown Rx mg tablet tabs tizanidine 4 mg tablet 4 mg PO BID PRN muscle spasticity 07/16/22 09/07/22 09/04/22 Rx #60 tabs levothyroxine 125 mcg tablet 125 mcg PO DAILY 90 days #90 tabs 07/21/22 09/07/22 09/06/22 Rx Allergies Allergy/AdvReac Type Severity Reaction Status Date / Time Penicillins Allergy Severe Hives, Verified 09/07/22 07:52 Rash, Fever PFSH Anesthesia Medical History Bipolar 1 disorder, depressed, full remission Bipolar 1 disorder, depressed, partial remission Bipolar disorder current episode depressed Bladder spasm Chronic bronchitis with acute exacerbation Chronic pain CKD (chronic kidney disease) Elevated creatine kinase level Fibromyalgia Cannot tolerate NSAIDs due to them causing SYMONE. GERD (gastroesophageal reflux disease) GERD without esophagitis Hyperkalemia Hypertension, benign No spironolactone due to high K No HCTZ, made leg swelling worse per pt Hypothyroid Leg swelling MVP (mitral valve prolapse) Peripheral edema Psychiatric care Radiculopathy due to disorder of intervertebral disc Repetitive strain injury of lower back Right bundle branch block Surgical History H/O dilation and curettage H/O tubal ligation H/O tympanostomy H/O: hysterectomy History of bladder surgery Hx of cholecystectomy Family History Mother Cancer breast cancer Father Heart disease Other Diabetes Social History Smoking and tobacco status: current every day smoker (1 ppd) cigarettes Packs smoked per day: 1.5 Years cigarettes smoked: 28 Quit status (tobacco): has tried quititng Number of times tried to quit tobacco: 15 Smoking risk assessment/counseling performed?: No Alcohol intake: never History of recent travel: No Current gender identity: Female Female Reproductive History Spontaneous abortions: No Data Anesthesia Cardiac Studies: Echocardiogram 10/27/21
[2022-09-07 09:48] LABS: Blood Urea Nitrogen 17 mg/dL (6-20); Calcium 9.3 mg/dL (8.5-10.5); Carbon Dioxide 26 mmol/L (22-29); Chloride 105 mmol/L (98-107); Glomerular Filtration Rate 58.2 mL/min (90-130); Glucose 96 mg/dL (65-115); Osmolality Calculated 291 mOsm/kg (285-295); Sodium 140 mmol/L (136-145)
[2022-09-14] VITALS (14 sets, daily range): BP systolic 124–170; BP diastolic 79–121; PULSE 72–85; RESP 16–18; TEMP 36.3–36.7; O2SAT 95–100
--- NOTE | 2022-09-14 | XR_ITS ---
WS: [id number] Cervical spine, C-arm fluoroscopy, 09/14/2022 Clinical Data: C5-6 ACDF Comparison: None. Findings: Dr. Nava performed an anterior cervical disc fusion. XR/XR cervical spine 3V* [id number] Impression: Anterior cervical disc fusion.
[2022-09-14] MEDS: sodium chloride 0.9% 1,000 ML 30 ML IV (06:17)
--- NOTE | 2022-09-14 06:40 | W.PM.OPSUD ---
Surgery/Procedure H&P Update DATE OF PROCEDURE: September 14, 2022 DATE H&P PERFORMED: 08/16/22 H&P UPDATE INFORMATION: I have reviewed H&P completed within last 30 days, I have examined patient prior to procedure and No changes to prior documentation PREOP DIAGNOSIS: Cervical spondylosis with radiculopathy PLANNED PROCEDURE: Operation Date: 09/14/22 07:00 Proposed Procedures p ACDF C5/6 [id number](Not Applicable) - Chance Nava DO
[2022-09-14] MEDS: clindamycin 900 MG/50 ML PREMIX 100 MG IV (07:00)
--- NOTE | 2022-09-14 07:19 | P.ANESUD_ITS ---
Pre-Anesthetic Update Pre-Anesthetic Assessment: Date of Surgery/Procedure: 09/14/22 Preop Dunia gnosis: Cervical spondylosis with radiculopathy Proposed Procedure: Operation Date: 09/14/22 07:00 Proposed Procedures p ACDF C5/6 [id number](Not Applicable) - Chance Nava, DO Any changes to Pre-Anesthetic Assessment?: No Last Intake: Intake Last Liquid Date 09/14/22 Last Liquid Time 01:00 Last Solid Date 09/13/22 Last Solid Time 21:30 Vitals: Temperature 97.5 F L 09/14/22 06:04 Temperature Source Temporal Artery S can 09/14/22 06:04 Pulse Rate 75 09/14/22 06:04 Respiratory Rate 18 09/14/22 06:04 Blood Pressure 149/101 09/14/22 06:04 Blood Pressure Masha n 117 09/14/22 06:04 Pulse Oximetry 98 09/14/22 06:04 Oxygen Delivery Me thod 09/14/22 06:04 Exam: Pre-Anes Outpt Exam: alert, oriented x 3, clear to auscultation bilaterally and regular rate & rhythm Cardiac Studies: Echocardiogram 10/27/21
--- NOTE | 2022-09-14 08:48 | PM.OP ---
Operative Report Date of procedure: September 14, 2022 Pre-op diagnosis: Preop Diagnosis Cervical spondylosis with radiculopathy Post-op diagnosis: same Procedure done: 1. Anterior diskectomy C5/6 2. Insertion of cage C5/6 3. Instrumentation from C5-C6 4. Use of allograft Surgeon: Chance Nava Estimated blood loss (mL): 10 Procedure: 1. Anterior diskectomy C5/6 2. Insertion of cage C5/6 3. Instrumentation from C5-C6 4. Use of allograft The patient was taken to the operating room, where he underwent general endotracheal anesthesia without complications. He was then positioned supine on the operating table, and all areas of impingement were well padded. The arms were carefully padded and tucked at his sides. A roll was placed between the shoulder blades.. An x-ray was done to determine the appropriate level for the skin incision. The entire neck was then sterilely prepped and draped in the usual fashion. Neuromonitoring was attached prior to prepping. A transverse skin incision was made and carried down to the platysma muscle. This was then split in line with its fibers. Blunt dissection was carried down medial to the carotid sheath and lateral to the trachea and esophagus until the anterior cervical spine was visualized. A needle was placed into a disc and an x-ray was done to determine its location. The longus colli muscles were then elevated bilaterally with the electrocautery unit. Self-retaining retractors were placed deep to the longus colli muscle. Attention was brought to the C5-6 level that was confirmed on x-ray. A caspar pin was placed into the C5 Vertebrae and the C6 vertebrae. The disk space was then distracted. The microscope was then brought in. A radical anterior discectomies were performed at C5/6. This included complete removal of the anterior annulus, nucleus, and posterior annulus. The posterior longitudinal ligament was removed as were the posterior osteophytes. Foraminotomies were then accomplished bilaterally. This was done using a high speed nory, kerrison rongeurs and curretes Once all of this was accomplished, the curved currette was used to check for any residual compression. The central canal was wide open as were the foramen. A high-speed bur was used to remove the cartilaginous endplates above and below the interspace. Bleeding cancellous bone was exposed. The disc space were measured and appropriate size cage were placed sterilely onto the field. Allograft graft was packed into the cages. The cage was then placed and there was good juxtaposition against the bleeding decorticated surfaces and good distraction of each interspace. The [place] pins were removed. Bone wax was used to prevent any bleeding from occurring at the pin sites. Two screws were then placed into each of the vertebral bodies thru the cage at C5 and C6. There was excellent purchase. A final x-ray was done confirming good position of the hardware and Cages. Following a final copious irrigation, there was good hemostasis and no dural leaks. The carotid pulse was strong. The wounds were then closed in layers using 2-0 Vicryl suture for the platysma muscle, 2-0 Vicryl suture for the subcutaneous tissue, and 4-0 monocryl suture in a subcuticular skin closure. Glue was placed followed by application of a sterile dressing. The drain was hooked to bulb suction. A soft collar was applied. The patient was then carefully returned to the supine position on his hospital bed where he was reversed and extubated and taken to the recovery room having tolerated the procedure well.
[2022-09-14] MEDS: hyDRALAzine 20 mg/mL INJ 1 mL (09:24)
[2022-09-14] MEDS: fentaNYL 50 mcg/mL INJ 2mL IVP (09:33)
[2022-09-14] MEDS: HYDROcodone-acetaminophen 10-325 mg Tablet 1 TAB PO (10:27)
[2022-09-14] MEDS: ondansetron 2 mg/ML SDV 2 mL 4 MG IVP (10:44)
--- NOTE | 2022-09-14 14:00 | ANE.PACU2 ---
Inpatient post-anesthesia follow up: Airway intact: Yes Vital signs: Temperature 97.3 F Pulse Rate 85 Respiratory Rate 17 Blood Pressure 124/81 Pulse Oximetry 97 Oxygen Delivery Me thod Room Air Oxygen Flow Rate 6 Fraction of Inspir ed Oxygen Hydration adequate: Yes Nausea and vomiting: No Pain level: 3 Mental status: Baseline
== END 2022-09-14 11:18 | disposition home or self-care (01) ==
PROVIDERS: Anesthesiology; PCP Family Medicine; Visit Provider Orthopaedic Surgery
PROC: 0RB30ZZ Excision of Cervical Vertebral Disc, Open Approach (ICD-10-PCS; CPT 22551; principal; 2022-09-14 07:00)
DX: M47.12 Other spondylosis with myelopathy, cervical region (principal); J44.9 Chronic obstructive pulmonary disease, unspecified; G47.30 Sleep apnea, unspecified; E78.5 Hyperlipidemia, unspecified; K21.9 Gastro-esophageal reflux disease without esophagitis; M79.7 Fibromyalgia; I12.9 Hypertensive chronic kidney disease with stage 1 through stage 4 chronic kidney disease, or unspecified chronic kidney disease; N18.9 Chronic kidney disease, unspecified; E03.9 Hypothyroidism, unspecified; F17.210 Nicotine dependence, cigarettes, uncomplicated
CPT/HCPCS: 20930; 22551; 22845; 22853; 36415; 72040; 76000; 80048; C1713; C9359; J0330; J0360; J1170; J2405; J2704; J3010; J3490; J7030; L0172

== ENCOUNTER → 2022-10-15 09:00 | Outpatient (BNVA) | payer MEDICAID, SELFPAY | PROVIDERS: PCP Family Medicine; Visit Provider Family Medicine | DX: E03.9 Hypothyroidism, unspecified (principal); Z51.81 Encounter for therapeutic drug level monitoring; N18.9 Chronic kidney disease, unspecified; F31.76 Bipolar disorder, in full remission, most recent episode depressed; M79.89 Other specified soft tissue disorders; I10 Essential (primary) hypertension | CPT/HCPCS: 80069; 80178; 82043; 82310; 82652; 83970; 84439; 84443; 84481; 85025 ==

== ENCOUNTER → 2022-10-30 09:02 | Outpatient (BNVA) | payer MEDICAID, SELFPAY | PROVIDERS: PCP Family Medicine; Visit Provider Orthopaedic Surgery | DX: Z47.89 Encounter for other orthopedic aftercare (principal); Z98.1 Arthrodesis status | CPT/HCPCS: 72040 ==

== ENCOUNTER 2023-01-16 12:28 | Outpatient (CLI) | payer MEDICAID, SELFPAY ==
--- NOTE | 2023-01-16 12:00 | CT_ITS ---
WS: [id number] LDCT LUNG CANCER SCREENING TECHNIQUE: Noncontrast CT of the chest with coronal and sagittal reformatted images. CLINICAL INFORMATION: lung screening COMPARISON: None. DLP: 101.37 mGy.cm DIvol: Mean CTDIvol: 2.10 (mGy) All CT scans at [facility] use at least one of these dose optimization techniques: automat ed exposure control; mA and/or kV adjustment per patient size (includes targeted exams where dose is matched to clinical indication); or iterative reconstruction. FINDINGS: Stable 5 mm noncalcified nodule RIGHT upper lobe. This is unchanged since July 12, 2022 . Stable noncalcified nodule in the lingula measuring 5 mm with surrounding fibrosis or subsegmental at electasis appears stable. A few additional tiny scattered subcentimeter nodules are stable. Calcified granulomas RIGHT lower lobe. Normal caliber thoracic aorta. No mediastinal or hilar lymphadenopathy. No axillary lymphadenopathy. Cholecystectomy clips. Small esophageal hiatal hernia. Adrenal glands are normal. Mild thoracic curve . Mild thoracic kyphosis. CT/CT lung screening [id number] IMPRESSION: LUNG-RADS: 2-Benign Appearance or Behavior FOLLOW UP: 12 Month: Continue annual screening with LDCT
== END 2023-01-16 12:29 | disposition home or self-care (01) ==
LOC: RAD 12:34
PROVIDERS: PCP Family Medicine; Visit Provider Internal Medicine Pulmonary Disease
DX: R91.1 Solitary pulmonary nodule (principal)
CPT/HCPCS: 71271

== ENCOUNTER → 2023-01-22 09:44 | Outpatient (BNVA) | payer MEDICAID, SELFPAY | PROVIDERS: PCP Family Medicine; Visit Provider Physician Assistant | DX: M47.22 Other spondylosis with radiculopathy, cervical region (principal); M48.062 Spinal stenosis, lumbar region with neurogenic claudication | CPT/HCPCS: 72040; 72100 ==

== ENCOUNTER → 2023-02-11 09:45 | Outpatient (BNVA) | payer MEDICAID, SELFPAY | PROVIDERS: PCP Family Medicine; Visit Provider Nurse Practitioner Family | DX: N18.30 Chronic kidney disease, stage 3 unspecified (principal) | CPT/HCPCS: 80069; 82043; 82306; 82310; 83970; 85025 ==

== ENCOUNTER → 2023-02-12 13:43 | Outpatient (BNVA) | payer MEDICAID, SELFPAY | PROVIDERS: PCP Family Medicine; Visit Provider Orthopaedic Surgery | DX: M48.062 Spinal stenosis, lumbar region with neurogenic claudication (principal); Z01.818 Encounter for other preprocedural examination | CPT/HCPCS: 36415; 80053 ==

== ENCOUNTER 2023-02-27 11:27 | Observation (INO) | payer MEDICAID, SELFPAY ==
[2023-02-20 13:19] VITALS: BMI 29.2
--- NOTE | 2023-02-20 17:08 | P.ANESASSM_ITS ---
Pre-Anesthetic Assessment Height/Weight: Height 1.8 m Weight 95.254 kg Operation Date: 02/27/23 07:30 Proposed Procedures p Lumbar Spine Decompression:98424,24585,M48.062(Not Applicable) - Chance Nava DO Familial anesthetic complications: none Was Beta Mauro taken within 24 hours: Yes Was Clonidine taken within 24 hours: N/A Social Tobacco and No alcohol Exam alert, oriented x 3 and regular rate & rhythm Airway Submandibular: within normal limits Cervical ROM: Other (some limited extension) Mallampati: Class II Dentition: false Pulmonary Chronic Obstructive Pulmonary Disease and Sleep Apnea CV/HEM Hypertension GI Gastroesophageal Reflux Disease Metabolic Morbid Obesity and Thyroid Disease [facility] Fibromyalgia, Lower Back Pain and Osteoarthritis/DJD Neuropsych Bipolar and Neuropathy Anesthetic Plan ASA status: 3 Anesthesia: General Medications/Allergies Home Medications Medication Instructions Recorded Confirmed Last Taken Type magnesium oxide 500 mg capsule 400 mg PO DAILY 03/18/20 02/20/23 02/20/23 History vitamin B complex (B 1 tab PO DAILY #30 tabs 03/21/20 02/20/23 09/13/22 Rx Complex-Vitamin B12 tablet) zinc 50 mg tablet 25 mg PO DAILY #30 tabs 03/21/20 02/20/23 09/13/22 Rx omega-3 fatty acids 1,000 mg 1,000 mg PO BID 06/15/21 02/20/23 02/20/23 History capsule (Fish Oil Concentrate) ascorbic acid (vitamin C) 500 mg 500 mg PO DAILY 10/24/21 02/20/23 02/20/23 History chewable tablet acetaminophen 500 mg tablet 500 mg PO Q6H PRN Pain 12/04/21 02/20/23 09/13/22 History (Tylenol Extra Strength) [place] lumbar Brace #1 ea 02/07/22 02/20/23 Unknown Rx ProAir HFA 90 mcg/actuation See Rx Instructions .Route 04/05/22 02/20/23 02/19/23 Rx aerosol inhaler (albuterol sulfate) .COMPLEX #9 grams tizanidine 4 mg tablet 4 mg PO BID PRN muscle spasticity 07/16/22 02/20/23 Unknown Rx #60 tabs intraoperative neuromonitoring #1 ea 09/14/22 02/20/23 Unknown Rx furosemide 20 mg tablet 20 mg PO QAM 90 days #90 tabs 10/18/22 02/20/23 02/20/23 Rx gabapentin 300 mg capsule See Rx Instructions .Route 10/18/22 02/20/23 02/20/23 Rx .COMPLEX #90 caps omeprazole magnesium 20 mg 20 mg PO DAILY 90 days #90 tabs 10/18/22 02/20/23 02/20/23 Rx tablet,delayed release montelukast 10 mg tablet 10 mg PO DAILY #30 tabs 12/05/22 02/20/23 02/20/23 Rx (Singulair) metoprolol succinate 50 mg 75 mg PO DAILY #135 tabs 12/27/22 02/20/23 02/20/23 Rx tablet,extended release 24 hr tiotropium bromide 18 mcg capsule 1 cap inhalation DAILY 12/27/22 02/20/23 Unknown History with inhalation device (Spiriva with HandiHaler) fluticasone propionate 110 2 puff inhalation BID #12 grams 12/28/22 02/20/23 Unknown Rx mcg/actuation HFA aerosol inhaler (Flovent HFA) umeclidinium 62.5 mcg-vilanterol 1 inh inhalation DAILY #60 ea 12/28/22 02/20/23 02/20/23 Rx 25 mcg/actuation powdr for inhalation (Anoro Ellipta) lithium carbonate 300 mg capsule 300 mg PO BID #60 caps 01/29/23 02/20/23 02/20/23 Rx quetiapine 300 mg tablet (Seroquel) 300 mg PO DAILY bipolar disorder 01/29/23 02/20/23 02/20/23 Rx 30 days #30 tabs levothyroxine 137 mcg tablet See Rx Instructions .Route 02/06/23 02/20/23 02/20/23 Rx .COMPLEX #30 tabs Allergies Allergy/AdvReac Type Severity Reaction Status Date / Time Penicillins Allergy Severe Hives, Verified 02/20/23 09:41 Rash, Fever PFSH Anesthesia Medical History Bipolar 1 disorder, depressed, full remission Bipolar 1 disorder, depressed, partial remission Bipolar disorder current episode depressed Bladder spasm Chronic bronchitis with acute exacerbation Chronic kidney disease, stage 3 Chronic pain CKD (chronic kidney disease) Elevated creatine kinase level Fibromyalgia GERD (gastroesophageal reflux disease) GERD without esophagitis Hyperkalemia Hypertension, benign No spironolactone due to high K No HCTZ, made leg swelling worse per pt Hypothyroid Leg swelling MVP (mitral valve prolapse) Peripheral edema Psychiatric care Radiculopathy due to disorder of intervertebral disc Repetitive strain injury of lower back Right bundle branch block Surgical History H/O dilation and curettage H/O tubal ligation H/O tympanostomy H/O: hysterectomy History of bladder surgery Hx of cholecystectomy Family History Mother Cancer breast cancer Father Heart disease Other Diabetes Social History Smoking and tobacco status: current every day smoker (1 ppd) cigarettes Packs smoked per day: 1.5 Years cigarettes smoked: 28 Quit status (tobacco): has tried quititng Number of times tried to quit tobacco: 15 Smoking risk assessment/counseling performed?: No Alcohol intake: never Substance/Drug Use: never Current gender identity: Female Female Reproductive History Spontaneous abortions: No Data Anesthesia Cardiac Studies: Echocardiogram 10/27/21
[2023-02-27] VITALS (24 sets, daily range): BP systolic 105–154; BP diastolic 69–97; PULSE 62–76; RESP 12–19; TEMP 36.1–36.9; O2SAT 92–100
--- NOTE | 2023-02-27 | XR_ITS ---
WS: [id number] INTRAOPERATIVE TECHNIQUE: 2 Spot fluoroscopic images for intraoperative purposes. FLUOROSCOPY TIME: 4.8 seconds CLINICAL INFORMATION: Open L34; L4-5 decompression COMPARISON: None. FINDINGS: Intraoperative fluoroscopy for decompressive laminectomy lower lumbar spine XR/XR lumbar spine 1V [id number] IMPRESSION: Images obtained for intraoperative purposes.
[2023-02-27] MEDS: sodium chloride 0.9% 1,000 ML 30 ML IV (06:22)
--- NOTE | 2023-02-27 06:31 | W.PM.OPSUD ---
Surgery/Procedure H&P Update DATE OF PROCEDURE: February 27, 2023 DATE H&P PERFORMED: 02/20/23 H&P UPDATE INFORMATION: I have reviewed H&P completed within last 30 days, I have examined patient prior to procedure and No changes to prior documentation PREOP DIAGNOSIS: Lumbar stenosis with neurogenic claudication PLANNED PROCEDURE: Operation Date: 02/27/23 07:00 Proposed Procedures p Lumbar Spine Decompression:31287,58625,M48.062(Not Applicable) - Chance Nava DO
[2023-02-27] MEDS: clindamycin 900 MG/50 ML PREMIX 100 MG IV (07:02)
[2023-02-27] MEDS: lidocaine-epi 2% 20 mL INJ INJECTION (07:28)
[2023-02-27] MEDS: vancomycin 1,000 MG SDV 1000 MG XX (07:54)
--- NOTE | 2023-02-27 08:16 | PM.OP ---
Operative Report Date of procedure: February 27, 2023 Pre-op diagnosis: Preop Diagnosis Lumbar stenosis with neurogenic claudication Post-op diagnosis: same Procedure done: 1. L3/4 revision laminectomy with partial facetectomies 2. L4/5 laminectomy with partial facetectomies Surgeon: Chance Nava Test Inspection Engineer: Estevan Mayer Test Inspection Engineer: The surgical garment assembly supervisor, Estevan Mayer, PAC was needed for his expertise under the microscope. He was important and necessary throughout the procedure to complete in a safe and timely manner. He assisted with patient positioning prepping and draping tissue retraction suctioning of the operative field protection of the dural sac and tissue closure Estimated blood loss (mL): 25 Procedure: 1. L3/4 revision laminectomy with partial facetectomies 2. L4/5 laminectomy with partial facetectomies Patient brought the operative suite after undergoing anesthesia was placed in the prone position. All points impingement were well-padded. Patient was prepped draped normal sterile fashion. Using previous incision dissection was made down to the L3-4 and L4-5 levels. Retractors were placed. Microscope was brought in. The spinous process were taken down L4 and L3. The laminectomy of L4 was done first. This was done using high-speed bur curved curettes and Kerrison rongeur. Once it was taken down and the ligamentum flavum was taken down from the lamina of L4 to the lamina of L5. The medial aspect of facet joints were taken down bilaterally using a high-speed bur curved curette and Kerrison rongeurs. The L5 nerve was traced around the L5 pedicle. The L4 nerve was traced around it through the L4-5 foramen felt to be adequate decompressed. Next tension was brought to the L3-4 level. On the left side the previous laminectomy site was identified and undermined with a curved curette. Scar tissue was peeled off the dura. Laminectomies performed using high-speed bur as well as taking on the medial aspect of the facet joints. The Kerrison rongeur was took down the medial aspect of facets. The L3 nerve was traced out the L3-4 foramen and the L4 nerve transfer and the L4 pedicles felt to be adequately decompressed. There was in good repair about the L3-4 and L4-5 levels. Wounds were irrigated and closed in layered fashion with 0 Vicryl 2-0 Vicryl and Monocryl suture. Sterile dressings applied patient was transferred to the PACU in stable condition.
[2023-02-27] MEDS: fentaNYL 50 mcg/mL INJ 2mL IVP (08:49)
--- NOTE | 2023-02-27 09:31 | P.ANESUD_ITS ---
Pre-Anesthetic Update Pre-Anesthetic Assessment: Date of Surgery/Procedure: 02/27/23 Preop Dunia gnosis: Lumbar stenosis with neurogenic claudication Proposed Procedure: Operation Date: 02/27/23 07:00 Proposed Procedures p Lumbar Spine Decompression:72965,52889,M48.062(Not Applicable) - Chance Nava, DO Any changes to Pre-Anesthetic Assessment?: No Last Intake: Intake Last Liquid Date 02/27/23 Last Liquid Time 06:00 Last Solid Date 02/26/23 Last Solid Time 20:30 Vitals: Temperature 97 F L 02/27/23 09:11 Temperature Source Temporal Artery S can 02/27/23 09:11 Pulse Rate 63 02/27/23 09:11 Respiratory Rate 16 02/27/23 09:11 Respiratory Effort Spontaneous 02/27/23 08:49 Respiratory Depth Normal 02/27/23 08:49 Respiratory Patter n Normal 02/27/23 08:49 Blood Pressure 143/91 02/27/23 09:11 Blood Pressure Masha n 108 02/27/23 09:11 Pulse Oximetry 97 02/27/23 09:11 Oxygen Delivery Me thod Nasal Cannula 02/27/23 09:11 Oxygen Flow Rate 2 02/27/23 09:11 Exam: Pre-Anes Outpt Exam: alert, oriented x 3, clear to auscultation bilaterally and regular rate & rhythm Cardiac Studies: Echocardiogram 10/27/21
[2023-02-27] MEDS: HYDROcodone-acetaminophen 5-325 mg Tablet PO ×3 (10:01→19:43)
[2023-02-27] MEDS: lactated ringers 1,000 ML 90 ML IV ×2 (13:40→23:54)
[2023-02-27] MEDS: clindamycin 300 MG/50 ML PREMIX 100 MG IV ×2 (16:06→23:55)
--- NOTE | 2023-02-27 16:23 | ANE.PACU2 ---
Inpatient post-anesthesia follow up: Airway intact: Yes Vital signs: Temperature 97.6 F Pulse Rate 68 Respiratory Rate 18 Blood Pressure 121/74 Pulse Oximetry 96 Oxygen Delivery Me thod Room Air Oxygen Flow Rate 2 Fraction of Inspir ed Oxygen Hydration adequate: Yes Nausea and vomiting: No Pain level: 3 Mental status: Baseline
[2023-02-27] MEDS: clindamycin 600 MG/50 ML PREMIX 100 MG IV ×2 (16:52→23:55)
[2023-02-27] MEDS: nicotine 21 mg Patch 1 PATCH TRANSDERMA (19:44)
[2023-02-27] MEDS: lithium carbonate 300 mg Capsule PO (20:45)
[2023-02-27] MEDS: pantoprazole DR 40 mg Tablet PO (20:45)
[2023-02-27] MEDS: quetiapine 300 mg Tablet PO (20:45)
[2023-02-28] MEDS: HYDROcodone-acetaminophen 5-325 mg Tablet PO (00:05)
[2023-02-28 03:56] VITALS: BP 121/79; PULSE 54; RESP 18; TEMP 36.7; O2SAT 96
[2023-02-28] MEDS: ketorolac 30 mg/mL INJ IVP (04:58)
--- NOTE | 2023-02-28 06:43 | PM.PN ---
Subjective Subjective: POD 1 Patient sitting up in bed feeling much better. Reports mild back pain improvement of her leg pain. She is ready for discharge home. Vitals/I&O/Wt Last Vital Signs Temp 98.1 F 02/28/23 03:56 Pulse 54 L 02/28/23 03:56 Resp 18 02/28/23 03:56 BP 121/79 02/28/23 03:56 Pulse Ox 96 02/28/23 03:56 O2 Del Method Room Air 02/27/23 23:32 O2 Flow Rate 2 02/27/23 20:00 02/27/23 02/27/23 02/28/23 14:59 22:59 06:59 Intake Total 390 / 390 1261 / 1651 1300 / 2951 Output Total 150 / 150 50 / 200 Balance 240 / 240 1211 / 1451 1300 / 2751 Physical Exam Narrative: Patient presents alert and oriented x3 with a good general appearance normal mood and affect. Normal coordination normal stability. Mild tenderness around the incisional site with the incision appear to be clean and dry. Hemovac drain intact. No signs of erythema or drainage. No signs of infection. Patient denies any fevers or chills. 5/5 motor strength both lower extremities with negative straight leg raise bilaterally. Calves are supple no medial thigh tenderness. Pulses are 2+ at the dorsalis pedis and posterior tibial region. Good capillary refill throughout normal sensation light touch both lower extremities. Urinary Catheter Management: [place]: Cath Placed During This Visit: yes, but has since been removed by the nurse Reason for Continuing Indwelling Catheter: Other Urinary Catheter Date of Insertion: 02/27/23 Urinary Catheter Time of Insertion: 07:15 Date Urinary Catheter Removed: 02/27/23 Time Urinary Catheter Discontinued: 08:13 A&P Assessment and plan (1) Status post lumbar laminectomy: DC Hemovac drain. Change dressing to new Silverlon dressing. Mobilize the halls will discharge home this morning. Encourage no bending lifting or twisting. Home with incentive spirometry for pulmonary toilet. We will see her back in the office in 1 week's time for wound check. We will call if she is having problems. Attestations Medical Necessity Statement*: Discharge home this morning after DC'd Hemovac drain Coding Level of Care Code Acute Code for Chg Fwd Diagnoses Status post lumbar laminectomy Z98.890
[2023-02-28 07:10] VITALS: BP 132/88; PULSE 59; RESP 18; TEMP 36.7; O2SAT 98
--- NOTE | 2023-02-28 07:21 | PC.PHAR ---
unable to update med rec- has discharge medications in
[2023-02-28] MEDS: clindamycin 600 MG/50 ML PREMIX 100 MG IV (07:57)
[2023-02-28] MEDS: clindamycin 300 MG/50 ML PREMIX 100 MG IV (08:44)
[2023-02-28] MEDS: pantoprazole DR 40 mg Tablet PO (08:46)
--- NOTE | 2023-02-28 09:00 | PC.NURSE ---
hemovac removed. dressing applied to hemovac site, and silverlon dressing changed over surgical incision.
--- NOTE | 2023-02-28 10:25 | PC.NURSE ---
patient verbalized understanding of discharge instructions, home medications, and follow up appointments, however pt has been very vocal about going off the floor to smoke. Empahasized education on smoking cessation. Patient unwilling to wait for walker to be delivered, and stated that she will pick it up from HOME.
[2023-02-28 10:47] VITALS: BP 132/88; PULSE 59; RESP 18; TEMP 36.7; O2SAT 98
--- NOTE | 2023-02-28 10:47 | PC.CHAP ---
Pastoral Care Encounter/Spiritual Assessment Type of Contact [x] Declined shuttle bus driver visit [] Patient/Family/Request visit [] Outpatient visit [] Follow-up visit [] Physician referral [] Code/Alert [x] Routine visit [] Staff referral [] Actively dying [] Patient sleeping [] Family support [] [] Out of room [] Palliative care [] [x] Receiving care in room [] Pre-surgical visit [] Trauma [] Long length of stay [] ICU visit [] Other: Relational/Emotional Strength [] Patient feels connected with others/family/visitors/staff [] Distress [] Loneliness/isolation [] Abandonment Spirituality of Patient [] Person of Jazz [] Attends [employer] [] Believes in Prayer [] Reads Bible or Adventist materials [] There are Spiritual issues to be addressed Velvet Cutter Interventions [] Prayer [] Active listening [] Non-anxious presence [] Spiritual/emotional support [] Crisis/trauma care [] Spiritual counseling [] Bereavement support [] Provided bereavement packet [] Provided Bible/devotional materials [] Provided toy/stuffed animal, coloring book to patient or family member [] Provided Communion [] Anointing/Assumption [] Salvation [] Completed spiritual assessment [] Other: Impact on Illness or Injury [] Angry [] Fearful [] Anxious [] Often cries [] Exhaustion [] Unable to work [] Unable to attend pentecostalism [] Unable to walk/stand [] Unable to read [] Unable to drive [] Unable to eat/drink [] Unable to sleep [] Unable to be with family [] Patient intubated [] Other: Summary Declined shuttle bus driver visit Time spent with patient 5 mins
--- NOTE | 2023-02-28 11:05 | PC.SOCIAL ---
Walker order sent to HOME, prequalified through [employer], [id number], Patient to pick it up.
== END 2023-02-28 10:40 | disposition home or self-care (01) ==
LOC: MEDSURG 11:27
PROVIDERS: Admitting Provider Orthopaedic Surgery; PCP Family Medicine; Visit Provider Orthopaedic Surgery
PROC: (CPT 63005; principal; 2023-02-27 07:00)
DX: M48.062 Spinal stenosis, lumbar region with neurogenic claudication (principal); J44.9 Chronic obstructive pulmonary disease, unspecified; G47.30 Sleep apnea, unspecified; K21.9 Gastro-esophageal reflux disease without esophagitis; E03.9 Hypothyroidism, unspecified; F31.9 Bipolar disorder, unspecified; I12.9 Hypertensive chronic kidney disease with stage 1 through stage 4 chronic kidney disease, or unspecified chronic kidney disease; N18.30 Chronic kidney disease, stage 3 unspecified; F17.210 Nicotine dependence, cigarettes, uncomplicated
CPT/HCPCS: 63047; 63048; 51702; 72020; 76000; 97161; 97530; G0378; J1100; J1885; J2405; J2704; J3010; J3370; J3490; J7030; J7120

== ENCOUNTER 2023-04-29 09:12 | Outpatient (CLI) | payer MEDICAID, SELFPAY ==
[2023-04-29 10:05] LABS: Lithium 0.5 mmol/L (0.6-1.2)
[2023-04-29 10:18] LABS: Free T4 Free Thyroxine 0.12 ng/dL (0.82-1.77); T3 Free 0.4 PG/ML (2.0-4.4)
== END 2023-04-29 09:13 | disposition home or self-care (01) ==
PROVIDERS: Nurse Practitioner Psychiatric/Mental Health; PCP Family Medicine; Visit Provider Family Medicine
DX: E03.9 Hypothyroidism, unspecified (principal); Z79.899 Other long term (current) drug therapy
CPT/HCPCS: 36415; 80178; 84439; 84443; 84481

== ENCOUNTER → 2023-06-05 11:29 | Outpatient (BNVA) | payer MEDICAID, SELFPAY | PROVIDERS: PCP Family Medicine; Visit Provider Family Medicine | DX: M79.89 Other specified soft tissue disorders (principal); E03.9 Hypothyroidism, unspecified | CPT/HCPCS: 84439; 84443; 84481 ==

== ENCOUNTER 2023-07-11 13:49 | Outpatient (CLI) | payer MEDICAID, SELFPAY ==
--- NOTE | 2023-07-11 14:30 | MM_ITS ---
WS: [id number] BILATERAL SCREENING DIGITAL TOMOSYNTHESIS MAMMOGRAM WITH CAD HISTORY: Z00.00 - Encounter for general adult medical examination ... COMPARISON: None available. Bilateral CC and MLO views with tomosynthesis and synthetic mammography submitted. Computer aided det ection analyzed. Breast composition: The breasts are heterogeneously dense, which may obscure small masses. No suspici ous masses, microcalcifications or architectural distortion. IMPRESSION: MM/[place] [id number] BI-RADS: 1-Negative FOLLOW UP: 1 Year Follow-up
== END 2023-07-11 13:50 | disposition home or self-care (01) ==
LOC: MOBLMAM 13:57
PROVIDERS: PCP Family Medicine; Visit Provider Family Medicine
DX: Z12.31 Encounter for screening mammogram for malignant neoplasm of breast (principal)
CPT/HCPCS: 77063; 77067

== ENCOUNTER → 2023-07-30 14:07 | Outpatient (BNVA) | payer MEDICAID, SELFPAY | PROVIDERS: PCP Family Medicine; Visit Provider Family Medicine | DX: M47.22 Other spondylosis with radiculopathy, cervical region (principal); M48.062 Spinal stenosis, lumbar region with neurogenic claudication; N95.1 Menopausal and female climacteric states; E03.9 Hypothyroidism, unspecified; Z13.220 Encounter for screening for lipoid disorders; Z13.6 Encounter for screening for cardiovascular disorders; N18.9 Chronic kidney disease, unspecified; M79.89 Other specified soft tissue disorders | CPT/HCPCS: 80048; 80061; 84439; 84443; 84481 ==

== ENCOUNTER → 2023-10-22 10:15 | Outpatient (BNVA) | payer MEDICAID, SELFPAY | PROVIDERS: PCP Family Medicine; Visit Provider Family Medicine | DX: E03.9 Hypothyroidism, unspecified (principal); M79.89 Other specified soft tissue disorders; N95.1 Menopausal and female climacteric states; M79.7 Fibromyalgia; M47.22 Other spondylosis with radiculopathy, cervical region; K21.9 Gastro-esophageal reflux disease without esophagitis; Z79.899 Other long term (current) drug therapy; Z51.81 Encounter for therapeutic drug level monitoring; I10 Essential (primary) hypertension | CPT/HCPCS: 80061; 80178; 83036; 84439; 84443; 84481 ==

== ENCOUNTER → 2023-10-25 09:20 | Outpatient (BNVA) | payer MEDICAID, SELFPAY | PROVIDERS: PCP Family Medicine; Referring Provider Family Medicine; Visit Provider Family Medicine | DX: Z79.899 Other long term (current) drug therapy (principal); E03.9 Hypothyroidism, unspecified | CPT/HCPCS: 80061; 80178; 83036; 84439; 84443; 84481 ==

== ENCOUNTER 2023-12-27 11:48 | Outpatient (CLI) | payer MEDICAID, SELFPAY ==
--- NOTE | 2023-12-27 11:58 | XR_ITS ---
WS: [id number] Exam: XR lumbar spine min 4V [id number] Date/Time of Exam: 12/27/2023 12:05 PM Reason For Exam: M79.10 - Myalgia, unspecified site No acute fracture or dislocation. L4 laminectomy. Marked facet arthropathy at all levels. Mild levosc oliosis. Mild spondylosis. Mild degenerative disc thinning from L3-S1. Increased lumbar lordosis. Num erous metallic coils noted in the LEFT abdomen and LEFT pelvis. IMPRESSION: 1. Postoperative changes of the lumbar spine and degenerative changes. 2. No fracture or malalignment. Mild levoscoliosis.
== END 2023-12-27 11:49 | disposition home or self-care (01) ==
LOC: RAD 11:51
PROVIDERS: PCP Family Medicine; Visit Provider Anesthesiology Pain Medicine
DX: M79.10 Myalgia, unspecified site (principal); M51.36 Other intervertebral disc degeneration, lumbar region; M47.816 Spondylosis without myelopathy or radiculopathy, lumbar region
CPT/HCPCS: 72110

== ENCOUNTER 2024-01-30 10:03 | Outpatient (CLI) | payer MEDICAID, SELFPAY ==
--- NOTE | 2024-01-30 10:30 | CT_ITS ---
WS: [id number] LDCT LUNG CANCER SCREENING HISTORY: Cancer Screen TECHNIQUE: Axial imaging performed from the apices to 1 cm below the costophrenic angles. Coronal and sagittal reformats are submitted with axial MIP series. All CT scans at [facility] use at least one of these dose optimization techniques: automated exposure control; mA and/or kV adjustment per patient size (includes targeted exams where dose is matched to clinical indication); or iterativ e reconstruction. DLP: 83.01 mGy.cm DIvol: Mean CTDIvol: 2.00 (mGy) COMPARISON: 01/16/2023 Diagnostic quality: Satisfactory Lungs: Hyperexpanded lungs from emphysema. Reidentified are subcentimeter nodules bilaterally. The la rgest nodules are at the lingula and RIGHT upper lobe. There is a new micronodule in the periphery RI GHT upper lobe, image 101 of series 4. There are additional micronodules. No enlarging mass. No endob ronchial lesions. Heart: Normal size heart with no pericardial effusion.. Other findings: Mild atherosclerosis aorta. Normal size pulmonary artery. No adenopathy identified. S mall hiatal hernia. No adrenal mass. CT/CT lung screening [id number] IMPRESSION: LUNG-RADS: 2-Benign Appearance or Behavior FOLLOW UP: 12 Month: Continue annual screening with LDCT OTHER FINDINGS (S MODIFIER): None.
== END 2024-01-30 10:04 | disposition home or self-care (01) ==
LOC: RAD 10:03
PROVIDERS: PCP Family Medicine; Visit Provider Internal Medicine Pulmonary Disease
DX: J43.8 Other emphysema (principal); F17.210 Nicotine dependence, cigarettes, uncomplicated; R91.8 Other nonspecific abnormal finding of lung field; K44.9 Diaphragmatic hernia without obstruction or gangrene
CPT/HCPCS: 71271

== ENCOUNTER 2024-01-30 15:15 | Outpatient (CLI) | payer MEDICAID, SELFPAY ==
--- NOTE | 2024-01-30 15:15 | MR_ITS ---
WS: [id number] MRI LUMBAR SPINE NONCONTRAST TECHNIQUE: Sagittal T1, T2 and STIR imaging. Axial T1 and T2 imaging. CLINICAL INFORMATION: M54.16 - Radiculopathy, lumbar region COMPARISON: None. FINDINGS: 5 nonrib-bearing lumbar vertebral bodies will be considered L1-L5 for the purposes of this dictation and in keeping with the prior numbering pattern. If counting performed from the craniocervical juncti on only 11 rib bearing lumbar vertebral bodies. Mild lumbar curve. No acute compression. Prior decompressive laminectomies L3-L4 and L4-L5. No high-g rade central canal stenosis. Slight retrolisthesis L3 on L4. L1-L2: No significant disc bulging. Mild facet arthropathy. Spinal canal and foramen are patent. L2-L3: Mild annular bulging. Slight narrowing LEFT subarticular recess. Moderate facet arthropathy. M ild central canal stenosis. This is slightly progressed compared to previous. Mild LEFT foraminal arley rowing. L3-L4: Slight retrolisthesis with mild disc bulging. Laminectomy defects New at this level. Slight na rrowing of the subarticular recess. Moderate facet arthropathy. Moderate RIGHT foraminal narrowing. L4-L5: Laminectomy defects. Mild disc bulging with slight impingement on the exiting LEFT L4 nerve ro ot. Mild LEFT foraminal narrowing. RIGHT foramen is patent. Moderate facet arthropathy. L5-S1: Mild disc bulging with slight impingement of traversing LEFT greater than RIGHT S1 nerve roots . Moderate LEFT and no significant RIGHT foraminal narrowing. Moderate facet arthropathy. This is sim ilar to previous. Visualized pelvic bony structures: Normal. Paravertebral soft tissues: Normal. MR/MR lumbar spine wo con* [id number] IMPRESSION: 1. Mild lumbar curve. No acute compression. No high-grade central canal stenos is. 2. Laminectomy defects at L3-4. New from previous with spinal canal decompress ion. 3. Disc bulging L2-3 with impingement of the LEFT subarticular recess and mild central canal stenosis appears slightly progressed. Mild LEFT L2-3 foraminal n arrowing. 4. Moderate RIGHT L3-4 bony foraminal narrowing appears stable. 5. Spinal canal is patent at L4-5 with decompressive laminectomies. Mild LEFT L4-5 foraminal narrowing appears stable. 6. Disc bulging L5-S1 with impingement of traversing LEFT greater than RIGHT S 1 nerve roots. This is stable compared to previous with moderate LEFT foraminal narrowing. 7. Moderate facet arthropathy L3-L5.
== END 2024-01-30 15:16 | disposition home or self-care (01) ==
LOC: RAD 02-13 12:13
PROVIDERS: PCP Family Medicine; Visit Provider Anesthesiology Pain Medicine
DX: M54.16 Radiculopathy, lumbar region (principal); M96.1 Postlaminectomy syndrome, not elsewhere classified; M51.36 Other intervertebral disc degeneration, lumbar region; M99.63 Osseous and subluxation stenosis of intervertebral foramina of lumbar region; M51.37 Other intervertebral disc degeneration, lumbosacral region; M47.896 Other spondylosis, lumbar region
CPT/HCPCS: 72148

== ENCOUNTER → 2024-03-02 09:23 | Outpatient (BNVA) | payer MEDICAID, SELFPAY | PROVIDERS: PCP Family Medicine; Referring Provider Family Medicine; Visit Provider Family Medicine | DX: N18.30 Chronic kidney disease, stage 3 unspecified (principal); Z79.899 Other long term (current) drug therapy | CPT/HCPCS: 80069; 82043 ==

== ENCOUNTER → 2024-08-25 15:47 | Outpatient (BNVA) | payer MEDICAID, SELFPAY | PROVIDERS: PCP Family Medicine; Visit Provider Family Medicine | DX: I10 Essential (primary) hypertension (principal); J44.9 Chronic obstructive pulmonary disease, unspecified; E03.9 Hypothyroidism, unspecified; N95.1 Menopausal and female climacteric states; Z51.81 Encounter for therapeutic drug level monitoring | CPT/HCPCS: 80053; 84443; 85025 ==

== ENCOUNTER 2024-09-10 11:00 | Outpatient (CLI) | payer MEDICAID, SELFPAY ==
--- NOTE | 2024-09-10 10:20 | MM_ITS ---
WS: [email or web address] BILATERAL 3D TOMOSYNTHESIS DIGITAL SCREENING MAMMOGRAPHY WITH CAD CLINICAL INFORMATION: SCREENING HISTORY: Screening mammogram. No current complaints. COMPARISON: 2022 TECHNIQUE: Bilateral CC and MLO views. FINDINGS: The breasts are composed of heterogeneous fibroglandular density tissue, which can limit the detectio n of small underlying mass lesions. No suspicious mass, asymmetry, calcifications, or architectural d istortion. No evidence of malignancy. Punctate cluster calcifications in the RIGHT breast appear stab le in appearance since 2022 MM/MM [facility] tomosynthesis [id number] IMPRESSION: DENSITY: The breasts are heterogeneously dense, which may obscure small masses. BI-RADS: 2 - Benign FOLLOW UP: 1 Year Follow-up Recommend return to annual screening mammography.
== END 2024-09-10 11:01 | disposition home or self-care (01) ==
LOC: MOBLMAM 10-30 06:41
PROVIDERS: PCP Family Medicine; Visit Provider Family Medicine
DX: Z12.31 Encounter for screening mammogram for malignant neoplasm of breast (principal); R92.333 Mammographic heterogeneous density, bilateral breasts; R92.1 Mammographic calcification found on diagnostic imaging of breast
CPT/HCPCS: 77063; 77067

== ENCOUNTER → 2024-10-01 12:38 | Outpatient (BNVA) | payer MEDICAID, SELFPAY | PROVIDERS: PCP Family Medicine; Referring Provider Family Medicine; Visit Provider Family Medicine | DX: E03.9 Hypothyroidism, unspecified (principal); I10 Essential (primary) hypertension | CPT/HCPCS: 80053; 84439; 84443; 84481 ==

== ENCOUNTER → 2024-10-09 10:32 | Outpatient (BNVA) | payer MEDICAID, SELFPAY | PROVIDERS: PCP Family Medicine; Referring Provider Internal Medicine; Visit Provider Internal Medicine | DX: N18.31 Chronic kidney disease, stage 3a (principal) | CPT/HCPCS: 80069; 82043 ==

== ENCOUNTER → 2024-12-15 08:44 | Outpatient (BNVA) | payer MEDICAID, SELFPAY | PROVIDERS: PCP Family Medicine; Visit Provider Family Medicine | DX: R53.83 Other fatigue (principal); Z51.81 Encounter for therapeutic drug level monitoring; F39 Unspecified mood [affective] disorder; E03.9 Hypothyroidism, unspecified | CPT/HCPCS: 80053; 80178; 84439; 84443; 84481; 85025 ==

== ENCOUNTER → 2025-03-16 08:31 | Outpatient (BNVA) | payer MEDICAID, SELFPAY | PROVIDERS: PCP Family Medicine; Visit Provider Family Medicine | DX: I10 Essential (primary) hypertension (principal); E03.9 Hypothyroidism, unspecified | CPT/HCPCS: 80053; 80061; 84439; 84443; 84481; 85025 ==

== ENCOUNTER 2025-04-15 09:45 | Day surgery (SDC) | payer MEDICAID, SELFPAY ==
[2025-04-15 10:04] VITALS: BP 152/88; PULSE 60; RESP 16; TEMP 36.3; O2SAT 97
[2025-04-15 10:05] VITALS: BMI 29.7
--- NOTE | 2025-04-15 10:06 | W.PM.OPSUD ---
Surgery/Procedure H&P Update DATE OF PROCEDURE: April 15, 2025 DATE H&P PERFORMED: 03/30/25 H&P UPDATE INFORMATION: I have reviewed H&P completed within last 30 days, I have examined patient prior to procedure, No changes to prior documentation, Changes to prior documentation as noted here and Risks and benefits of the procedure reviewed PLANNED PROCEDURE: Operation Date: 04/15/25 11:15 Proposed Procedures p Colonoscopy [id number] Z12.11(Not Applicable) - Devyn Mensah MD
--- NOTE | 2025-04-15 11:04 | PC.NURSE ---
cecum time 1104
[2025-04-15 11:36] VITALS: BP 119/69; PULSE 59; RESP 20; TEMP 36.2; O2SAT 95
[2025-04-15 11:51] VITALS: BP 142/85; PULSE 60; RESP 18; O2SAT 95
--- NOTE | 2025-04-15 12:20 | ANE.PACU2 ---
Inpatient post-anesthesia follow up: Airway intact: Yes Vital signs: Temperature 97.1 F Pulse Rate 60 Respiratory Rate 18 Blood Pressure 142/85 Pulse Oximetry 95 Oxygen Delivery Me thod Room Air Oxygen Flow Rate Fraction of Inspir ed Oxygen Hydration adequate: Yes Nausea and vomiting: No Pain level: 1 Mental status: Baseline
== END 2025-04-15 12:03 | disposition home or self-care (01) ==
PROVIDERS: PCP Family Medicine; Visit Provider Surgery
PROC: 0DJD8ZZ Inspection of Lower Intestinal Tract, Via Natural or Artificial Opening Endoscopic (ICD-10-PCS; CPT 45378; principal; 2025-04-15 11:15)
DX: Z12.11 Encounter for screening for malignant neoplasm of colon (principal); D12.3 Benign neoplasm of transverse colon; D12.4 Benign neoplasm of descending colon; D12.0 Benign neoplasm of cecum; D12.2 Benign neoplasm of ascending colon; D12.8 Benign neoplasm of rectum; F17.210 Nicotine dependence, cigarettes, uncomplicated; I12.9 Hypertensive chronic kidney disease with stage 1 through stage 4 chronic kidney disease, or unspecified chronic kidney disease; N18.30 Chronic kidney disease, stage 3 unspecified; K21.9 Gastro-esophageal reflux disease without esophagitis; F31.9 Bipolar disorder, unspecified; M79.7 Fibromyalgia; I34.1 Nonrheumatic mitral (valve) prolapse; J42 Unspecified chronic bronchitis
CPT/HCPCS: 45380; 45385; 88305; J2704; J7030

== ENCOUNTER → 2025-06-30 13:06 | Outpatient (BNVA) | payer MEDICAID, SELFPAY | PROVIDERS: PCP Family Medicine; Visit Provider Nurse Practitioner | DX: N18.30 Chronic kidney disease, stage 3 unspecified (principal) | CPT/HCPCS: 80069; 82043; 82310; 83970; 85025 ==